=== PATIENT | female | born 1965 | race Caucasian/White ===

== ENCOUNTER 2022-11-20 11:37 | Emergency (ER) | payer SELFPAY ==
[2022-11-20] MEDS ORDERED: cloNIDine 0.2 MG TAB ONE (12:05)
[2022-11-20] MEDS ORDERED: Amoxicillin/Potassium Clav 875 MG TAB ONE (12:05)
[2022-11-20] MEDS ORDERED: traMADol HCl 50 MG TAB ONE (12:05)
== END 2022-11-20 13:53 | disposition home or self-care (01) ==
LOC: NAV ERS 11:37
DX: K04.7 Periapical abscess without sinus (principal); I10 Essential (primary) hypertension; F17.210 Nicotine dependence, cigarettes, uncomplicated
CPT/HCPCS: 99283